=== PATIENT | female | born 1955 | race Hispanic/Latino ===

== ENCOUNTER 2021-12-10 13:23 | Inpatient (IN) | payer MEDICARE ==
[2021-12-11] MEDS: ACETAMINOPHEN 325 MG TAB PO PRN ×2 (05:43→14:46)
[2021-12-11 07:21] LABS: Basophils # (Auto) 0.1 K/mm3 (0.0-0.1); Basophils % (Auto) 0.9 % (0.0-1.8); Eosinophils # (Auto) 0.1 K/mm3 (0.0-0.4); Hematocrit 42.3 % (30.3-42.9); Hemoglobin 14.3 gm/dl (10.1-14.3); Lymphocytes # (Auto) 2.1 K/mm3 (1.2-5.4); Lymphocytes % (Auto) 30.9 % (13.4-35.0); Mean Corpuscular HGB Conc 34 % (30-34); Mean Corpuscular Volume 82 fl (79-97); Monocytes # (Auto) 0.4 K/mm3 (0.0-0.8); Monocytes % (Auto) 6.1 % (0.0-7.3); Platelet Count 179 K/mm3 (140-440); Red Blood Count 5.17 M/mm3 (3.65-5.03); Red Cell Distribution Width 13.6 % (13.2-15.2)
[2021-12-11 07:52] LABS: Alanine Aminotransferase 15 units/L (7-56); Albumin 3.8 g/dL (3.9-5); Blood Urea Nitrogen 24 mg/dL (7-17); Calcium 9.8 mg/dL (8.4-10.2); HDL Cholesterol 45 mg/dL (40-59); Hemolysis Index 5; LDL Cholesterol,Direct 114 mg/dL (50-130)
[2021-12-11 07:53] LABS: BUN/Creatinine Ratio 40
--- NOTE | 2021-12-11 09:22 | Consultation ---
History of Present Illness - Reason for Consult Consult date: 12/11/21 Medical management - History of Present Illness Patient is a 66-year-old female past medical history of major depressive disorder, hypertension, hyperlipidemia, and shl-zehkslw-lsksebatg type 2 diabetes mellitus complicated by diabetic neuropathy who presented due to decline in functional status. The patient has stopped talking and eating. The patient failed outpatient management, and she was deemed a danger to herself. Medicine was consulted for medical management of nonpsychiatric conditions. Past History Past Medical History: diabetes, hypertension, hyperlipidemia, other (Depressive disorder, diabetic neuropathy) Past Surgical History: No surgical history Social history: single, Lives alone, full code Family history: no significant family history Medications and Allergies Allergies Allergy/AdvReac Type Severity Reaction Status Date / Time Penicillins Allergy Unknown Unverified 12/10/21 13:24 Home Medications Medication Instructions Recorded Confirmed Last Taken Type AtorvaSTATin [Lipitor] 20 mg PO QHS 12/11/21 12/11/21 Unknown History Cefdinir 300 mg PO Q12H 12/11/21 12/11/21 Unknown History Duloxetine HCl [Cymbalta] 20 mg PO BID 12/11/21 12/11/21 Unknown History Metformin HCl [metFORMIN] 1,000 mg PO BID 12/11/21 12/11/21 Unknown History Oxycodone HCl [oxyCODONE] 20 mg PO Q6H PRN 12/11/21 12/11/21 Unknown History Pregabalin [Lyrica] 100 mg PO BID 12/11/21 12/11/21 Unknown History lamoTRIgine [LaMICtal] 25 mg PO BID 12/11/21 12/11/21 Unknown History Active Meds: Active Medications Acetaminophen (Acetaminophen 325 Mg Tab) 650 mg PO Q6H PRN PRN Reason: Pain, Mild (1-3) Last Admin: 12/11/21 05:43 Dose: 650 mg Review of Systems ROS unobtainable: due to mental status (Limited exam due to patient's current mental status.) Exam - Constitutional Vitals: Temp Pulse Resp BP Pulse Ox 97.3 F L 65 16 103/61 95 12/10/21 22:00 12/10/21 22:00 12/10/21 22:00 12/10/21 22:00 12/10/21 22:00 General appearance: Present: no acute distress, well-nourished, obese - EENT Eyes: Present: PERRL, EOM intact ENT: hearing intact, clear oral mucosa, dentition normal - Neck Neck: Present: supple, normal ROM - Respiratory Respiratory effort: normal Respiratory: bilateral: CTA - Cardiovascular Rhythm: regular Heart Sounds: Present: S1 & S2 - Extremities Extremities: no ischemia, pulses intact, pulses symmetrical, No edema, normal temperature, normal color Peripheral Pulses: within normal limits - Abdominal General gastrointestinal: Present: soft, non-tender, non-distended, normal bowel sounds Female genitourinary: Present: deferred - Rectal Rectal Exam: deferred - Integumentary Integumentary: Present: clear, warm, dry - Musculoskeletal Musculoskeletal: other (Unable to fully assess) - Psychiatric Psychiatric: depressed - Neurologic Neurologic: CNII-XII intact, moves all extremities - Allied Health Allied health notes reviewed: nursing Results - Labs CBC & Chem 7: 12/11/21 07:06 12/11/21 07:06 Labs: Abnormal lab results 12/10/21 12/11/21 12/11/21 Range/Units 20:02 07:06 07:06 RBC 5.17 H (3.65-5.03) M/mm3 BUN 24 H (7-17) mg/dL Glucose 268 H (65-100) mg/dL POC Glucose 180 H (70-105) mg/dL Hemoglobin A1c (4-6) % Total Protein 5.7 L (6.3-8.2) g/dL Albumin 3.8 L (3.9-5) g/dL Triglycerides 162 H (2-149) mg/dL 12/11/21 Range/Units 07:06 RBC (3.65-5.03) M/mm3 BUN (7-17) mg/dL Glucose (65-100) mg/dL POC Glucose (70-105) mg/dL Hemoglobin A1c 11.9 H (4-6) % Total Protein (6.3-8.2) g/dL Albumin (3.9-5) g/dL Triglycerides (2-149) mg/dL Assessment and Plan Patient is a 66-year-old female past medical history of major depressive disorder, hyperlipidemia, and [id number]-wtsqesgoi type 2 diabetes mellitus complicated by diabetic neuropathy who presented due to decline in functional status. The patient has stopped talking and eating. The patient failed outpatient management, and she was deemed a danger to herself. Medicine was consulted for medical management of nonpsychiatric conditions. #Major depressive disorder Management per primary #Non-insulin dependent type II diabetes mellitus complicated by diabetic neuropathy #[id number] type 2 diabetes mellitus with hyperglycemia - hemoglobin A1c: 11.9 - home regimen: Metformin 1000 mg twice daily and pregabalin 100 mg twice daily - current regimen: Metformin 1000 mg twice daily, pregabalin 100 mg twice daily, glipizide 5 mg daily - blood glucose goal 140-180 while inpatient - continue to monitor #Hyperlipidemia Continue home atorvastatin 20 mg daily #Mild protein caloric malnutrition Albumin 3.8 Starting dietary supplementation #Obesity #Weight loss counseling #Exercise counseling - BMI 30.2 - Counseled patient on the importance of weight loss, incorporating exercise, and dietary changes (lean meats, fresh fruits and vegetables, and water intake). Patient expresses understanding. - Time: +15 min #Advanced care planning -Disease education conducted, care plan discussed, diagnoses discussed, prognosis discussed, and patient acknowledges understanding with care plan -Time: +30 min Thank you for this interesting consult. We will continue to follow.
--- NOTE | 2021-12-11 09:31 | History and Physical Report ---
GP History & Physical - History of Present Illness Date of admission: 12/10/21 Date of Examination: 12/11/21 Reason for Admission: Danger to self, Failure of Outpatient Treatment, Severe anxiety/depression History of Present Illness: HPI: decline in functioning. stopped takings, stopped eating. Voiced SI d/t not liking her "home environment" per referral packet. The patient was seen today. She is lying in bed with her eyes closed. She is s hifting her position slightly and her eyes are blinking. She is avoidant and doesn't acknowledge my presence. I call her name several times, and then shake her. She then opens them and looks at me and closes them back. 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 PAST PSYCHIATRIC HISTORY: Unable to obtain PAST MEDICAL HISTORY: None reported or document Family Psychiatric History: None reported or documented SOCIAL HISTORY Unable to obtain REVIEW OF SYSTEMS Unable to obtain MENTAL STATUS EXAMINATION Unable to obtain Diagnoses: Major Depressive Disorder Treatment Plan Patient admitted for inpatient psychiatric evaluation, medication adjustment and close monitoring The patient's behavior, mood, sleep and appetite will be closely monitored. Patient enrolled in individual and group therapeutic sessions and encouraged to attend. Patient provided with a safe and structured environment. Patient's physical health needs will be addressed by the Hospitalist. Hospitalist Consulted Labs including CBC, CMP, Lipid profile and Hemoglobin A1C levels ordered for baseline reference Social Assessment will be completed and the Vice President Marketing [employer] Development will work with patient and family to ensure a suitable and safe disposition Medication adjustment will be made as clinically indicated Continue home meds Start Abilify 5mg po daily as adjunct Usual Wellness [facility]: - Start Trazodone 50 mg po QHS & 50 mg po QHS PRN between 10 PM & 2 AM for insomnia - Start Melatonin 5 mg po QHS to promote circadian rhythm The patient agreed on the treatment plan, understood the risk, benefit, alternative treatment, potential consequence of no treatment, and gave informed consent. Estimated days: 7 Post hospital care: primary care provider, psychiatric provider Case staffed with Dr. King Legal Status: Voluntary Reaction to Hospitalization: Accepting Medications and Allergies Allergies Allergy/AdvReac Type Severity Reaction Status Date / Time Penicillins Allergy Unknown Unverified 12/10/21 13:24 Home Medications Medication Instructions Recorded Confirmed Last Taken Type AtorvaSTATin [Lipitor] 20 mg PO QHS 12/11/21 12/11/21 Unknown History Cefdinir 300 mg PO Q12H 12/11/21 12/11/21 Unknown History Duloxetine HCl [Cymbalta] 20 mg PO BID 12/11/21 12/11/21 Unknown History Metformin HCl [metFORMIN] 1,000 mg PO BID 12/11/21 12/11/21 Unknown History Oxycodone HCl [oxyCODONE] 20 mg PO Q6H PRN 12/11/21 12/11/21 Unknown History Pregabalin [Lyrica] 100 mg PO BID 12/11/21 12/11/21 Unknown History lamoTRIgine [LaMICtal] 25 mg PO BID 12/11/21 12/11/21 Unknown History Active Meds: Active Medications Acetaminophen (Acetaminophen 325 Mg Tab) 650 mg PO Q6H PRN PRN Reason: Pain, Mild (1-3) Last Admin: 12/11/21 05:43 Dose: 650 mg Results - Results Labs/Vitals: Laboratory Last Values WBC 6.9 K/mm3 (4.5-11.0) 12/11/21 07:06 RBC 5.17 M/mm3 (3.65-5.03) H 12/11/21 07:06 Hgb 14.3 gm/dl (10.1-14.3) 12/11/21 07:06 Hct 42.3 % (30.3-42.9) 12/11/21 07:06 MCV 82 fl (79-97) 12/11/21 07:06 MCH 28 pg (28-32) 12/11/21 07:06 MCHC 34 % (30-34) 12/11/21 07:06 RDW 13.6 % (13.2-15.2) 12/11/21 07:06 Plt Count 179 K/mm3 (140-440) 12/11/21 07:06 Lymph % (Auto) 30.9 % (13.4-35.0) 12/11/21 07:06 [place] % (Auto) 6.1 % (0.0-7.3) 12/11/21 07:06 Eos % (Auto) 2.0 % (0.0-4.3) 12/11/21 07:06 Baso % (Auto) 0.9 % (0.0-1.8) 12/11/21 07:06 Lymph # (Auto) 2.1 K/mm3 (1.2-5.4) 12/11/21 07:06 [place] # (Auto) 0.4 K/mm3 (0.0-0.8) 12/11/21 07:06 Eos # (Auto) 0.1 K/mm3 (0.0-0.4) 12/11/21 07:06 Baso # (Auto) 0.1 K/mm3 (0.0-0.1) 12/11/21 07:06 Seg Neutrophils % 60.1 % (40.0-70.0) 12/11/21 07:06 Seg Neutrophils # 4.2 K/mm3 (1.8-7.7) 12/11/21 07:06 Sodium 137 mmol/L (137-145) 12/11/21 07:06 Potassium 4.3 mmol/L (3.6-5.0) 12/11/21 07:06 Chloride 98.9 mmol/L (98-107) 12/11/21 07:06 Carbon Dioxide 26 mmol/L (22-30) 12/11/21 07:06 Anion Gap 16 mmol/L 12/11/21 07:06 BUN 24 mg/dL (7-17) H 12/11/21 07:06 Creatinine 0.6 mg/dL (0.6-1.2) 12/11/21 07:06 Estimated GFR > 60 ml/min 12/11/21 07:06 BUN/Creatinine Ratio 40 % 12/11/21 07:06 Glucose 268 mg/dL (65-100) H 12/11/21 07:06 POC Glucose 180 mg/dL (70-105) H 12/10/21 20:02 Hemoglobin A1c 11.9 % (4-6) H 12/11/21 07:06 Calcium 9.8 mg/dL (8.4-10.2) 12/11/21 07:06 Total Bilirubin 0.40 mg/dL (0.1-1.2) 12/11/21 07:06 AST 11 units/L (5-40) 12/11/21 07:06 ALT 15 units/L (7-56) 12/11/21 07:06 Alkaline Phosphatase 74 units/L (35-129) 12/11/21 07:06 Total Protein 5.7 g/dL (6.3-8.2) L 12/11/21 07:06 Albumin 3.8 g/dL (3.9-5) L 12/11/21 07:06 Albumin/Globulin Ratio 2.0 % 12/11/21 07:06 Triglycerides 162 mg/dL (2-149) H 12/11/21 07:06 Cholesterol 189 mg/dL (50-199) 12/11/21 07:06 LDL Cholesterol Direct 114 mg/dL (50-130) 12/11/21 07:06 HDL Cholesterol 45 mg/dL (40-59) 12/11/21 07:06 Cholesterol/HDL Ratio 4.20 % 12/11/21 07:06 TSH 0.343 mlU/mL (0.270-4.200) 12/11/21 07:06 Last Vital Signs Temp 97.3 F L 12/10/21 22:00 Pulse 65 12/10/21 22:00 Resp 16 12/10/21 22:00 BP 103/61 12/10/21 22:00 Pulse Ox 95 12/10/21 22:00 Physical Examination - Constitutional Vitals: Vital Signs Temp Pulse Resp BP Pulse Ox 97.3 F L 65 16 103/61 95 12/10/21 22:00 12/10/21 22:00 12/10/21 22:00 12/10/21 22:00 12/10/21 22:00 Temperature -Last 24 Hours Temperature 97.3 F Temperature 97.3 F Temperature 98.1 F Mental Status Exam - Vital signs Last Vital Signs Temp 97.3 F L 12/10/21 22:00 Pulse 65 12/10/21 22:00 Resp 16 12/10/21 22:00 BP 103/61 12/10/21 22:00 Pulse Ox 95 12/10/21 22:00 Physician Certification - Certification Statement Physician Certification Statement: This is an acknowledgement statement that DYLAN LOPES is a 66 year old F who requires inpatient psychiatric admission for treatment which could reasonably be expected to improve the patient's condition for Estimated period of time patient will need to remain in the hospital: [ ] Plan for post-hospital care: [ ]
[2021-12-11] MEDS ORDERED: NON-FORMULARY EACH (Oxycodone Hcl [Oxycodone] 20 MG Tablet) PO PRN (09:35)
[2021-12-11] MEDS ORDERED: NON-FORMULARY EACH (Cefdinir [Cefdinir] 300 MG Capsule) PO SCH (09:45)
[2021-12-11] MEDS ORDERED: OXYCODONE 15 MG TAB PO PRN (09:57)
[2021-12-11] MEDS ORDERED: NON-FORMULARY EACH (Pregabalin [Lyrica] 100 MG Capsule) PO SCH (10:00)
[2021-12-11] MEDS: metFORMIN 500 MG TAB PO SCH ×2 (10:23→16:36)
[2021-12-11] MEDS: lamoTRIgine 25 MG TAB PO SCH ×2 (10:23→21:52)
[2021-12-11] MEDS: PREGABALIN 50 MG CAP PO SCH ×2 (10:23→21:52)
[2021-12-11] MEDS: DULoxetine 20 MG CAP PO SCH ×2 (10:23→21:52)
[2021-12-11] MEDS: ARIPiprazole 5 MG TAB PO SCH (10:23)
[2021-12-11] MEDS ORDERED: HALOPERIDOL LACTATE 5 MG/1 ML INJ IM PRN (10:31)
[2021-12-11] MEDS: glipiZIDE 5 MG TAB PO SCH (16:36)
[2021-12-11] MEDS: oxyCODONE 5 MG TAB PO PRN (22:00)
[2021-12-12] MEDS: glipiZIDE 5 MG TAB PO SCH (08:25)
[2021-12-12] MEDS: metFORMIN 500 MG TAB PO SCH ×2 (08:25→16:28)
--- NOTE | 2021-12-12 09:18 | Progress Note ---
Subjective Date of service: 12/12/21 Principal diagnosis: MDD Subjective Comment: The patient was seen today. She is calm and cooperative and states she feels much better. She is asking how long she will be here. She denies SI/HI or hallucinations of any kind. The patient states she did not sleep well. Staff says the patient is doing better since Haldol injection ordered yesterday. Will start Remeron to improve sleep and stimulate appetite. REVIEW OF SYSTEMS Constitutional: Negative for weight loss ENT: Negative for stridor Respiratory: Negative for cough or hemoptysis All other systems reviewed and are negative MENTAL STATUS EXAMINATION General Appearance and Behavior: Age appropriate, good hygiene, wearing appropriate clothes, fair eye contact, anxious, cooperative Cooperation: Participating/engaged Psychomotor Behavior: Psychomotor normal Mood: better, anxious Affect and affective range: congruent with stated mood, tearful Thought Process: goal directed Thought Content: None Speech: normal tone and pace Suicidal Ideation: Denies Homicidal Ideation: Denies Hallucinations: Denies Delusions: None elicited Impulse Control: Limited Insight and Judgment: Limited insight and judgment Memory: Limited Attention: attentive Orientation: Alert, oriented Diagnoses: Major Depressive Disorder Treatment Plan Patient admitted for inpatient psychiatric evaluation, medication adjustment and close monitoring The patient's behavior, mood, sleep and appetite will be closely monitored. Patient enrolled in individual and group therapeutic sessions and encouraged to attend. Patient provided with a safe and structured environment. Patient's physical health needs will be addressed by the Hospitalist. Hospitalist Consulted Labs including CBC, CMP, Lipid profile and Hemoglobin A1C levels ordered for baseline reference Social Assessment will be completed and the Vice President [employer] will work with patient and family to ensure a suitable and safe disposition Medication adjustment will be made as clinically indicated Abilify 5mg po daily as adjunct Start Remeron 7.5mg po qhs to promote rest and stimulate appetite Usual Wellness [facility]: - Start Trazodone 50 mg po QHS & 50 mg po QHS PRN between 10 PM & 2 AM for insomnia - Start Melatonin 5 mg po QHS to promote circadian rhythm The patient agreed on the treatment plan, understood the risk, benefit, alternative treatment, potential consequence of no treatment, and gave informed consent. Estimated days: 7 Post hospital care: primary care provider, psychiatric provider Case staffed with Dr. King Medications and Allergies Allergies Allergy/AdvReac Type Severity Reaction Status Date / Time Penicillins Allergy Unknown Unverified 12/10/21 13:24 Home Medications Medication Instructions Recorded Confirmed Last Taken Type AtorvaSTATin [Lipitor] 20 mg PO QHS 12/11/21 12/11/21 Unknown History Cefdinir 300 mg PO Q12H 12/11/21 12/11/21 Unknown History Duloxetine HCl [Cymbalta] 20 mg PO BID 12/11/21 12/11/21 Unknown History Metformin HCl [metFORMIN] 1,000 mg PO BID 12/11/21 12/11/21 Unknown History Oxycodone HCl [oxyCODONE] 20 mg PO Q6H PRN 12/11/21 12/11/21 Unknown History Pregabalin [Lyrica] 100 mg PO BID 12/11/21 12/11/21 Unknown History lamoTRIgine [LaMICtal] 25 mg PO BID 12/11/21 12/11/21 Unknown History Active Meds: Active Medications Acetaminophen (Acetaminophen 325 Mg Tab) 650 mg PO Q6H PRN PRN Reason: Pain, Mild (1-3) Last Admin: 12/11/21 05:43 Dose: 650 mg Aripiprazole (Aripiprazole 5 Mg Tab) 5 mg PO QDAY [facility] Last Admin: 12/11/21 10:23 Dose: Not Given Atorvastatin Calcium (Atorvastatin 20 Mg Tab) 20 mg PO QHS [facility] Last Admin: 12/11/21 21:52 Dose: 20 mg Cephalexin (Cephalexin 500 Mg Cap) 500 mg PO Q8HR [facility]; Protocol Duloxetine HCl (Duloxetine 20 Mg Cap) 20 mg PO BID [facility] Last Admin: 12/11/21 21:52 Dose: 20 mg Glipizide (Glipizide 5 Mg Tab) 5 mg PO QDDIAB [facility] Last Admin: 12/12/21 08:25 Dose: 5 mg Haloperidol Lactate (Haloperidol Lactate 5 Mg/1 Ml Inj) 5 mg IM Q6H PRN PRN Reason: Agitation Last Admin: 12/11/21 11:08 Dose: 5 mg Lamotrigine (Lamotrigine 25 Mg Tab) 25 mg PO BID [facility] Last Admin: 12/11/21 21:52 Dose: 25 mg Metformin HCl (Metformin 500 Mg Tab) 1,000 mg PO BIDDIAB [facility] Last Admin: 12/12/21 08:25 Dose: 1,000 mg Oxycodone HCl (Oxycodone 15 Mg Tab) 15 mg PO Q6H PRN PRN Reason: SEVERE PAIN Oxycodone HCl (Oxycodone 5 Mg Tab) 5 mg PO Q6H PRN PRN Reason: Pain, SEVERE 7-10 Last Admin: 12/11/21 22:00 Dose: 5 mg Pregabalin (Pregabalin 50 Mg Cap) 100 mg PO BID [facility] Last Admin: 12/11/21 21:52 Dose: 100 mg Results - Results Labs/Vitals: Laboratory Last Values WBC 6.9 K/mm3 (4.5-11.0) 12/11/21 07:06 RBC 5.17 M/mm3 (3.65-5.03) H 12/11/21 07:06 Hgb 14.3 gm/dl (10.1-14.3) 12/11/21 07:06 Hct 42.3 % (30.3-42.9) 12/11/21 07:06 MCV 82 fl (79-97) 12/11/21 07:06 MCH 28 pg (28-32) 12/11/21 07:06 MCHC 34 % (30-34) 12/11/21 07:06 RDW 13.6 % (13.2-15.2) 12/11/21 07:06 Plt Count 179 K/mm3 (140-440) 12/11/21 07:06 Lymph % (Auto) 30.9 % (13.4-35.0) 12/11/21 07:06 [place] % (Auto) 6.1 % (0.0-7.3) 12/11/21 07:06 Eos % (Auto) 2.0 % (0.0-4.3) 12/11/21 07:06 Baso % (Auto) 0.9 % (0.0-1.8) 12/11/21 07:06 Lymph # (Auto) 2.1 K/mm3 (1.2-5.4) 12/11/21 07:06 [place] # (Auto) 0.4 K/mm3 (0.0-0.8) 12/11/21 07:06 Eos # (Auto) 0.1 K/mm3 (0.0-0.4) 12/11/21 07:06 Baso # (Auto) 0.1 K/mm3 (0.0-0.1) 12/11/21 07:06 Seg Neutrophils % 60.1 % (40.0-70.0) 12/11/21 07:06 Seg Neutrophils # 4.2 K/mm3 (1.8-7.7) 12/11/21 07:06 Sodium 137 mmol/L (137-145) 12/11/21 07:06 Potassium 4.3 mmol/L (3.6-5.0) 12/11/21 07:06 Chloride 98.9 mmol/L (98-107) 12/11/21 07:06 Carbon Dioxide 26 mmol/L (22-30) 12/11/21 07:06 Anion Gap 16 mmol/L 12/11/21 07:06 BUN 24 mg/dL (7-17) H 12/11/21 07:06 Creatinine 0.6 mg/dL (0.6-1.2) 12/11/21 07:06 Estimated GFR > 60 ml/min 12/11/21 07:06 BUN/Creatinine Ratio 40 % 12/11/21 07:06 Glucose 268 mg/dL (65-100) H 12/11/21 07:06 POC Glucose 211 mg/dL (70-105) H 12/12/21 06:17 Hemoglobin A1c 11.9 % (4-6) H 12/11/21 07:06 Calcium 9.8 mg/dL (8.4-10.2) 12/11/21 07:06 Total Bilirubin 0.40 mg/dL (0.1-1.2) 12/11/21 07:06 AST 11 units/L (5-40) 12/11/21 07:06 ALT 15 units/L (7-56) 12/11/21 07:06 Alkaline Phosphatase 74 units/L (35-129) 12/11/21 07:06 Total Protein 5.7 g/dL (6.3-8.2) L 12/11/21 07:06 Albumin 3.8 g/dL (3.9-5) L 12/11/21 07:06 Albumin/Globulin Ratio 2.0 % 12/11/21 07:06 Triglycerides 162 mg/dL (2-149) H 12/11/21 07:06 Cholesterol 189 mg/dL (50-199) 12/11/21 07:06 LDL Cholesterol Direct 114 mg/dL (50-130) 12/11/21 07:06 HDL Cholesterol 45 mg/dL (40-59) 12/11/21 07:06 Cholesterol/HDL Ratio 4.20 % 12/11/21 07:06 TSH 0.343 mlU/mL (0.270-4.200) 12/11/21 07:06 Last Vital Signs Temp 98.5 F 12/12/21 07:53 Pulse 70 12/12/21 07:53 Resp 16 12/12/21 07:53 BP 94/60 12/12/21 07:53 Pulse Ox 98 12/12/21 07:53
[2021-12-12] MEDS: oxyCODONE 5 MG TAB PO PRN ×3 (09:24→21:34)
[2021-12-12] MEDS: lamoTRIgine 25 MG TAB PO SCH ×2 (09:24→21:33)
[2021-12-12] MEDS: PREGABALIN 50 MG CAP PO SCH ×2 (09:25→21:33)
[2021-12-12] MEDS: DULoxetine 20 MG CAP PO SCH ×2 (09:25→21:33)
[2021-12-12] MEDS: ARIPiprazole 5 MG TAB PO SCH (09:25)
--- NOTE | 2021-12-12 10:49 | Progress Note ---
Assessment and Plan Assessment and plan: Patient is a 66-year-old female past medical history of major depressive disorder, hyperlipidemia, and zub-pjnyuag-rqgjsgths type 2 diabetes mellitus complicated by diabetic neuropathy who presented due to decline in functional status. The patient has stopped talking and eating. The patient failed outpatient management, and she was deemed a danger to herself. Medicine was consulted for medical management of nonpsychiatric conditions. #Major depressive disorder Management per primary #Non-insulin dependent type II diabetes mellitus complicated by diabetic neuropathy #Zll-jnisezp-dyadurfue type 2 diabetes mellitus with hyperglycemia - hemoglobin A1c: 11.9 - home regimen: Metformin 1000 mg twice daily and pregabalin 100 mg twice daily - current regimen: Metformin 1000 mg twice daily, pregabalin 100 mg twice daily, glipizide 5 mg daily - blood glucose goal 140-180 while inpatient - continue to monitor #Hyperlipidemia Continue home atorvastatin 20 mg daily #Mild protein caloric malnutrition Albumin 3.8 Continue dietary supplementation #Obesity #Weight loss counseling #Exercise counseling - BMI 30.2 - Counseled patient on the importance of weight loss, incorporating exercise, and dietary changes (lean meats, fresh fruits and vegetables, and water intake). Patient expresses understanding. - Time: +15 min #Advanced care planning -Disease education conducted, care plan discussed, diagnoses discussed, prognosis discussed, and patient acknowledges understanding with care plan -Time: +30 min Disposition Plan: Continue medical management Total Time Spent with Patient (Minutes): 30 minutes History Interval history: No acute events overnight. Hospitalist Physical - Constitutional Vitals: Temp Pulse Resp BP Pulse Ox 98.5 F 70 16 94/60 98 12/12/21 07:53 12/12/21 07:53 12/12/21 07:53 12/12/21 07:53 12/12/21 07:53 General appearance: Present: no acute distress, well-nourished, obese - EENT Eyes: Present: PERRL, EOM intact ENT: hearing intact, clear oral mucosa - Neck Neck: Present: supple, normal ROM - Respiratory Respiratory effort: normal Respiratory: bilateral: CTA - Cardiovascular Rhythm: regular Heart Sounds: Present: S1 & S2 - Extremities Extremities: no ischemia, pulses intact, pulses symmetrical, normal temperature, normal color Peripheral Pulses: within normal limits - Abdominal General gastrointestinal: soft, non-tender, non-distended, normal bowel sounds - Integumentary Integumentary: Present: clear, warm, dry - Psychiatric Psychiatric: appropriate mood/affect, depressed - Neurologic Neurologic: CNII-XII intact, moves all extremities - Allied Health Allied health notes reviewed: nursing Results - Labs CBC & Chem 7: 12/11/21 07:06 12/11/21 07:06 Labs: Laboratory Last Values WBC 6.9 K/mm3 (4.5-11.0) 12/11/21 07:06 RBC 5.17 M/mm3 (3.65-5.03) H 12/11/21 07:06 Hgb 14.3 gm/dl (10.1-14.3) 12/11/21 07:06 Hct 42.3 % (30.3-42.9) 12/11/21 07:06 MCV 82 fl (79-97) 12/11/21 07:06 MCH 28 pg (28-32) 12/11/21 07:06 MCHC 34 % (30-34) 12/11/21 07:06 RDW 13.6 % (13.2-15.2) 12/11/21 07:06 Plt Count 179 K/mm3 (140-440) 12/11/21 07:06 Lymph % (Auto) 30.9 % (13.4-35.0) 12/11/21 07:06 [place] % (Auto) 6.1 % (0.0-7.3) 12/11/21 07:06 Eos % (Auto) 2.0 % (0.0-4.3) 12/11/21 07:06 Baso % (Auto) 0.9 % (0.0-1.8) 12/11/21 07:06 Lymph # (Auto) 2.1 K/mm3 (1.2-5.4) 12/11/21 07:06 [place] # (Auto) 0.4 K/mm3 (0.0-0.8) 12/11/21 07:06 Eos # (Auto) 0.1 K/mm3 (0.0-0.4) 12/11/21 07:06 Baso # (Auto) 0.1 K/mm3 (0.0-0.1) 12/11/21 07:06 Seg Neutrophils % 60.1 % (40.0-70.0) 12/11/21 07:06 Seg Neutrophils # 4.2 K/mm3 (1.8-7.7) 12/11/21 07:06 Sodium 137 mmol/L (137-145) 12/11/21 07:06 Potassium 4.3 mmol/L (3.6-5.0) 12/11/21 07:06 Chloride 98.9 mmol/L (98-107) 12/11/21 07:06 Carbon Dioxide 26 mmol/L (22-30) 12/11/21 07:06 Anion Gap 16 mmol/L 12/11/21 07:06 BUN 24 mg/dL (7-17) H 12/11/21 07:06 Creatinine 0.6 mg/dL (0.6-1.2) 12/11/21 07:06 Estimated GFR > 60 ml/min 12/11/21 07:06 BUN/Creatinine Ratio 40 % 12/11/21 07:06 Glucose 268 mg/dL (65-100) H 12/11/21 07:06 POC Glucose 211 mg/dL (70-105) H 12/12/21 06:17 Hemoglobin A1c 11.9 % (4-6) H 12/11/21 07:06 Calcium 9.8 mg/dL (8.4-10.2) 12/11/21 07:06 Total Bilirubin 0.40 mg/dL (0.1-1.2) 12/11/21 07:06 AST 11 units/L (5-40) 12/11/21 07:06 ALT 15 units/L (7-56) 12/11/21 07:06 Alkaline Phosphatase 74 units/L (35-129) 12/11/21 07:06 Total Protein 5.7 g/dL (6.3-8.2) L 12/11/21 07:06 Albumin 3.8 g/dL (3.9-5) L 12/11/21 07:06 Albumin/Globulin Ratio 2.0 % 12/11/21 07:06 Triglycerides 162 mg/dL (2-149) H 12/11/21 07:06 Cholesterol 189 mg/dL (50-199) 12/11/21 07:06 LDL Cholesterol Direct 114 mg/dL (50-130) 12/11/21 07:06 HDL Cholesterol 45 mg/dL (40-59) 12/11/21 07:06 Cholesterol/HDL Ratio 4.20 % 12/11/21 07:06 TSH 0.343 mlU/mL (0.270-4.200) 12/11/21 07:06 Hansen/IV: Voiding Method Toilet Active Medications - Current Medications Current Medications: Generic Name Dose Route Start Last Admin Trade Name Freq PRN Reason Stop Dose Admin Acetaminophen 650 mg 12/11/21 05:33 12/11/21 05:43 Acetaminophen 325 Mg Tab PO 650 mg Q6H PRN Administration Pain, Mild (1-3) Aripiprazole 5 mg 12/11/21 10:00 12/12/21 09:25 Aripiprazole 5 Mg Tab PO 5 mg QDAY [facility]AT Administration Atorvastatin Calcium 20 mg 12/11/21 22:00 12/11/21 21:52 Atorvastatin 20 Mg Tab PO 20 mg QHS [facility]AT Administration Cephalexin 500 mg 12/12/21 14:00 Cephalexin 500 Mg Cap PO 12/18/21 23:59 Q8HR [facility]AT Protocol Duloxetine HCl 20 mg 12/11/21 10:00 12/12/21 09:25 Duloxetine 20 Mg Cap PO 20 mg BID [facility]AT Administration Glipizide 5 mg 12/11/21 16:00 12/12/21 08:25 Glipizide 5 Mg Tab PO 5 mg QDDIAB [facility]AT Administration Haloperidol Lactate 5 mg 12/11/21 10:31 12/11/21 11:08 Haloperidol Lactate 5 Mg/1 Ml Inj IM 5 mg Q6H PRN Administration Agitation Lamotrigine 25 mg 12/11/21 10:00 12/12/21 09:24 Lamotrigine 25 Mg Tab PO 25 mg BID RAFAT Administration Metformin HCl 1,000 mg 12/11/21 11:00 12/12/21 08:25 Metformin 500 Mg Tab PO 1,000 mg BIDDIAB [facility]AT Administration Mirtazapine 7.5 mg 12/12/21 22:00 Mirtazapine 15 Mg Tab PO QHS [facility]AT Oxycodone HCl 15 mg 12/11/21 09:57 Oxycodone 15 Mg Tab PO Q6H PRN SEVERE PAIN Oxycodone HCl 5 mg 12/11/21 09:58 12/12/21 09:24 Oxycodone 5 Mg Tab PO 5 mg Q6H PRN Administration Pain, SEVERE 7-10 Pregabalin 100 mg 12/11/21 10:00 12/12/21 09:25 Pregabalin 50 Mg Cap PO 100 mg BID RAFAT Administration
[2021-12-12] MEDS ORDERED: cephALEXin 500 MG CAP PO SCH (14:00)
[2021-12-12] MEDS: MIRTAZAPINE 15 MG TAB PO SCH (21:33)
[2021-12-12] MEDS ORDERED: AMOXICILLIN/K CLAV 500/125MG TAB PO SCH (22:00)
[2021-12-13] MEDS: glipiZIDE 5 MG TAB PO SCH (08:15)
[2021-12-13] MEDS: metFORMIN 500 MG TAB PO SCH ×2 (08:15→17:03)
[2021-12-13] MEDS: lamoTRIgine 25 MG TAB PO SCH ×2 (09:16→21:07)
[2021-12-13] MEDS: ARIPiprazole 5 MG TAB PO SCH (09:16)
[2021-12-13] MEDS: PREGABALIN 50 MG CAP PO SCH ×2 (09:16→21:07)
[2021-12-13] MEDS: DULoxetine 20 MG CAP PO SCH (09:17)
[2021-12-13] MEDS: oxyCODONE 5 MG TAB PO PRN ×2 (09:17→22:57)
--- NOTE | 2021-12-13 09:31 | Progress Note ---
Subjective Date of service: 12/13/21 Principal diagnosis: MDD Subjective Comment: The patient was seen today. She is lying in bed awake. She says she says she doesn't feel good. She says her stomach hurts. The patient denies SI/HI, but states "if I did no one would care. She says "my runs off with other women and I haven't spoken to my children in years." 12/12 The patient was seen today. She is calm and cooperative and states she feels much better. She is asking how long she will be here. She denies SI/HI or hallucinations of any kind. The patient states she did not sleep well. Staff says the patient is doing better since Haldol injection ordered yesterday. Will start Remeron to improve sleep and stimulate appetite. REVIEW OF SYSTEMS Constitutional: Negative for weight loss ENT: Negative for stridor Respiratory: Negative for cough or hemoptysis All other systems reviewed and are negative MENTAL STATUS EXAMINATION General Appearance and Behavior: Age appropriate, good hygiene, wearing appropri ate clothes, fair eye contact, anxious, cooperative Cooperation: Participating/engaged Psychomotor Behavior: Psychomotor normal Mood: better, anxious Affect and affective range: congruent with stated mood, tearful Thought Process: goal directed Thought Content: None Speech: normal tone and pace Suicidal Ideation: passive Homicidal Ideation: Denies Hallucinations: Denies Delusions: None elicited Impulse Control: Limited Insight and Judgment: Limited insight and judgment Memory: Limited Attention: attentive Orientation: Alert, oriented Diagnoses: Major Depressive Disorder Treatment Plan Patient admitted for inpatient psychiatric evaluation, medication adjustment and close monitoring The patient's behavior, mood, sleep and appetite will be closely monitored. Patient enrolled in individual and group therapeutic sessions and encouraged to attend. Patient provided with a safe and structured environment. Patient's physical health needs will be addressed by the Hospitalist. Hospitalist Consulted Labs including CBC, CMP, Lipid profile and Hemoglobin A1C levels ordered for baseline reference Social Assessment will be completed and the [employer] Operations Division will work with patient and family to ensure a suitable and safe disposition Medication adjustment will be made as clinically indicated Abilify 5mg po daily as adjunct Continue Remeron 7.5mg po qhs to promote rest and stimulate appetite Increase Cymbalta 60mg po daily Usual Wellness Restorationism/Preservation: - Start Trazodone 50 mg po QHS & 50 mg po QHS PRN between 10 PM & 2 AM for insomnia - Start Melatonin 5 mg po QHS to promote circadian rhythm The patient agreed on the treatment plan, understood the risk, benefit, alternative treatment, potential consequence of no treatment, and gave informed consent. Estimated days: 7 Post hospital care: primary care provider, psychiatric provider Case staffed with Dr. King Medications and Allergies Allergies Allergy/AdvReac Type Severity Reaction Status Date / Time Penicillins Allergy Severe Rash Verified 12/12/21 13:33 Home Medications Medication Instructions Recorded Confirmed Last Taken Type AtorvaSTATin [Lipitor] 20 mg PO QHS 12/11/21 12/11/21 Unknown History Cefdinir 300 mg PO Q12H 12/11/21 12/11/21 Unknown History Duloxetine HCl [Cymbalta] 20 mg PO BID 12/11/21 12/11/21 Unknown History Metformin HCl [metFORMIN] 1,000 mg PO BID 12/11/21 12/11/21 Unknown History Oxycodone HCl [oxyCODONE] 20 mg PO Q6H PRN 12/11/21 12/11/21 Unknown History Pregabalin [Lyrica] 100 mg PO BID 12/11/21 12/11/21 Unknown History lamoTRIgine [LaMICtal] 25 mg PO BID 12/11/21 12/11/21 Unknown History Active Meds: Active Medications Acetaminophen (Acetaminophen 325 Mg Tab) 650 mg PO Q6H PRN PRN Reason: Pain, Mild (1-3) Last Admin: 12/11/21 05:43 Dose: 650 mg Amoxicillin/Clavulanate Potassium (Amoxicillin/K Clav 500/125mg Tab) 1 each PO Q12HR [facility]; Protocol Stop: 12/17/21 21:59 Aripiprazole (Aripiprazole 5 Mg Tab) 5 mg PO QDAY [facility] Last Admin: 12/13/21 09:16 Dose: 5 mg Atorvastatin Calcium (Atorvastatin 20 Mg Tab) 20 mg PO QHS [facility] Last Admin: 12/12/21 21:33 Dose: 20 mg Duloxetine HCl (Duloxetine 20 Mg Cap) 20 mg PO BID [facility] Last Admin: 12/13/21 09:17 Dose: 20 mg Glipizide (Glipizide 5 Mg Tab) 10 mg PO QDDIAB [facility] Haloperidol Lactate (Haloperidol Lactate 5 Mg/1 Ml Inj) 5 mg IM Q6H PRN PRN Reason: Agitation Last Admin: 12/11/21 11:08 Dose: 5 mg Lamotrigine (Lamotrigine 25 Mg Tab) 25 mg PO BID [facility] Last Admin: 12/13/21 09:16 Dose: 25 mg Metformin HCl (Metformin 500 Mg Tab) 1,000 mg PO BIDDIAB [facility] Last Admin: 12/13/21 08:15 Dose: 1,000 mg Mirtazapine (Mirtazapine 15 Mg Tab) 7.5 mg PO QHS [facility] Last Admin: 12/12/21 21:33 Dose: 7.5 mg Oxycodone HCl (Oxycodone 15 Mg Tab) 15 mg PO Q6H PRN PRN Reason: SEVERE PAIN Oxycodone HCl (Oxycodone 5 Mg Tab) 5 mg PO Q6H PRN PRN Reason: Pain, SEVERE 7-10 Last Admin: 12/13/21 09:17 Dose: 5 mg Pregabalin (Pregabalin 50 Mg Cap) 100 mg PO BID [facility] Last Admin: 12/13/21 09:16 Dose: 100 mg Results - Results Labs/Vitals: Laboratory Last Values WBC 6.9 K/mm3 (4.5-11.0) 12/11/21 07:06 RBC 5.17 M/mm3 (3.65-5.03) H 12/11/21 07:06 Hgb 14.3 gm/dl (10.1-14.3) 12/11/21 07:06 Hct 42.3 % (30.3-42.9) 12/11/21 07:06 MCV 82 fl (79-97) 12/11/21 07:06 MCH 28 pg (28-32) 12/11/21 07:06 MCHC 34 % (30-34) 12/11/21 07:06 RDW 13.6 % (13.2-15.2) 12/11/21 07:06 Plt Count 179 K/mm3 (140-440) 12/11/21 07:06 Lymph % (Auto) 30.9 % (13.4-35.0) 12/11/21 07:06 [place] % (Auto) 6.1 % (0.0-7.3) 12/11/21 07:06 Eos % (Auto) 2.0 % (0.0-4.3) 12/11/21 07:06 Baso % (Auto) 0.9 % (0.0-1.8) 12/11/21 07:06 Lymph # (Auto) 2.1 K/mm3 (1.2-5.4) 12/11/21 07:06 [place] # (Auto) 0.4 K/mm3 (0.0-0.8) 12/11/21 07:06 Eos # (Auto) 0.1 K/mm3 (0.0-0.4) 12/11/21 07:06 Baso # (Auto) 0.1 K/mm3 (0.0-0.1) 12/11/21 07:06 Seg Neutrophils % 60.1 % (40.0-70.0) 12/11/21 07:06 Seg Neutrophils # 4.2 K/mm3 (1.8-7.7) 12/11/21 07:06 Sodium 137 mmol/L (137-145) 12/11/21 07:06 Potassium 4.3 mmol/L (3.6-5.0) 12/11/21 07:06 Chloride 98.9 mmol/L (98-107) 12/11/21 07:06 Carbon Dioxide 26 mmol/L (22-30) 12/11/21 07:06 Anion Gap 16 mmol/L 12/11/21 07:06 BUN 24 mg/dL (7-17) H 12/11/21 07:06 Creatinine 0.6 mg/dL (0.6-1.2) 12/11/21 07:06 Estimated GFR > 60 ml/min 12/11/21 07:06 BUN/Creatinine Ratio 40 % 12/11/21 07:06 Glucose 268 mg/dL (65-100) H 12/11/21 07:06 POC Glucose 273 mg/dL (70-105) H 12/13/21 06:22 Hemoglobin A1c 11.9 % (4-6) H 12/11/21 07:06 Calcium 9.8 mg/dL (8.4-10.2) 12/11/21 07:06 Total Bilirubin 0.40 mg/dL (0.1-1.2) 12/11/21 07:06 AST 11 units/L (5-40) 12/11/21 07:06 ALT 15 units/L (7-56) 12/11/21 07:06 Alkaline Phosphatase 74 units/L (35-129) 12/11/21 07:06 Total Protein 5.7 g/dL (6.3-8.2) L 12/11/21 07:06 Albumin 3.8 g/dL (3.9-5) L 12/11/21 07:06 Albumin/Globulin Ratio 2.0 % 12/11/21 07:06 Triglycerides 162 mg/dL (2-149) H 12/11/21 07:06 Cholesterol 189 mg/dL (50-199) 12/11/21 07:06 LDL Cholesterol Direct 114 mg/dL (50-130) 12/11/21 07:06 HDL Cholesterol 45 mg/dL (40-59) 12/11/21 07:06 Cholesterol/HDL Ratio 4.20 % 12/11/21 07:06 TSH 0.343 mlU/mL (0.270-4.200) 12/11/21 07:06 Last Vital Signs Temp 98.3 F 12/13/21 08:51 Pulse 67 12/13/21 08:51 Resp 18 12/13/21 09:17 BP 121/54 12/13/21 08:51 Pulse Ox 96 12/13/21 08:51
[2021-12-13] MEDS ORDERED: DULoxetine 30 MG CAP PO SCH (10:00)
--- NOTE | 2021-12-13 12:39 | Progress Note ---
Assessment and Plan Assessment and plan: Patient is a 66-year-old female past medical history of major depressive disorder, hyperlipidemia, and vak-uunzabz-bfyvymcll type 2 diabetes mellitus complicated by diabetic neuropathy who presented due to decline in functional status. The patient has stopped talking and eating. The patient failed outpatient management, and she was deemed a danger to herself. Medicine was consulted for medical management of nonpsychiatric conditions. #Major depressive disorder Management per primary #Non-insulin dependent type II diabetes mellitus complicated by diabetic neuropathy #Aya-wbxoslq-hzcgqvzhl type 2 diabetes mellitus with hyperglycemia - hemoglobin A1c: 11.9 - home regimen: Metformin 1000 mg twice daily and pregabalin 100 mg twice daily - current regimen: Metformin 1000 mg twice daily, pregabalin 100 mg twice daily, glipizide 5 mg daily - blood glucose goal 140-180 while inpatient - continue to monitor #Hyperlipidemia Continue home atorvastatin 20 mg daily #Mild protein caloric malnutrition Albumin 3.8 Continue dietary supplementation #Obesity #Weight loss counseling #Exercise counseling - BMI 30.2 - Counseled patient on the importance of weight loss, incorporating exercise, and dietary changes (lean meats, fresh fruits and vegetables, and water intake). Patient expresses understanding. - Time: +15 min #Advanced care planning -Disease education conducted, care plan discussed, diagnoses discussed, prognosis discussed, and patient acknowledges understanding with care plan -Time: +30 min Disposition Plan: Continue medical management Total Time Spent with Patient (Minutes): 30 minutes History Interval history: No acute events overnight. Hospitalist Physical - Constitutional Vitals: Temp Pulse Resp BP Pulse Ox 98.3 F 67 18 121/54 96 12/13/21 08:51 12/13/21 08:51 12/13/21 09:17 12/13/21 08:51 12/13/21 08:51 General appearance: Present: no acute distress, well-nourished, obese - EENT Eyes: Present: PERRL, EOM intact ENT: hearing intact, clear oral mucosa, dentition normal - Neck Neck: Present: supple, normal ROM - Respiratory Respiratory effort: normal Respiratory: bilateral: CTA - Cardiovascular Rhythm: regular Heart Sounds: Present: S1 & S2 - Extremities Extremities: no ischemia, pulses intact, pulses symmetrical, No edema, normal temperature, normal color Peripheral Pulses: within normal limits - Abdominal General gastrointestinal: soft, non-tender, non-distended, normal bowel sounds - Integumentary Integumentary: Present: clear, warm, dry - Psychiatric Psychiatric: appropriate mood/affect, cooperative - Neurologic Neurologic: CNII-XII intact - Allied Health Allied health notes reviewed: nursing Results - Labs CBC & Chem 7: 12/11/21 07:06 12/11/21 07:06 Labs: Laboratory Last Values WBC 6.9 K/mm3 (4.5-11.0) 12/11/21 07:06 RBC 5.17 M/mm3 (3.65-5.03) H 12/11/21 07:06 Hgb 14.3 gm/dl (10.1-14.3) 12/11/21 07:06 Hct 42.3 % (30.3-42.9) 12/11/21 07:06 MCV 82 fl (79-97) 12/11/21 07:06 MCH 28 pg (28-32) 12/11/21 07:06 MCHC 34 % (30-34) 12/11/21 07:06 RDW 13.6 % (13.2-15.2) 12/11/21 07:06 Plt Count 179 K/mm3 (140-440) 12/11/21 07:06 Lymph % (Auto) 30.9 % (13.4-35.0) 12/11/21 07:06 [place] % (Auto) 6.1 % (0.0-7.3) 12/11/21 07:06 Eos % (Auto) 2.0 % (0.0-4.3) 12/11/21 07:06 Baso % (Auto) 0.9 % (0.0-1.8) 12/11/21 07:06 Lymph # (Auto) 2.1 K/mm3 (1.2-5.4) 12/11/21 07:06 [place] # (Auto) 0.4 K/mm3 (0.0-0.8) 12/11/21 07:06 Eos # (Auto) 0.1 K/mm3 (0.0-0.4) 12/11/21 07:06 Baso # (Auto) 0.1 K/mm3 (0.0-0.1) 12/11/21 07:06 Seg Neutrophils % 60.1 % (40.0-70.0) 12/11/21 07:06 Seg Neutrophils # 4.2 K/mm3 (1.8-7.7) 12/11/21 07:06 Sodium 137 mmol/L (137-145) 12/11/21 07:06 Potassium 4.3 mmol/L (3.6-5.0) 12/11/21 07:06 Chloride 98.9 mmol/L (98-107) 12/11/21 07:06 Carbon Dioxide 26 mmol/L (22-30) 12/11/21 07:06 Anion Gap 16 mmol/L 12/11/21 07:06 BUN 24 mg/dL (7-17) H 12/11/21 07:06 Creatinine 0.6 mg/dL (0.6-1.2) 12/11/21 07:06 Estimated GFR > 60 ml/min 12/11/21 07:06 BUN/Creatinine Ratio 40 % 12/11/21 07:06 Glucose 268 mg/dL (65-100) H 12/11/21 07:06 POC Glucose 273 mg/dL (70-105) H 12/13/21 06:22 Hemoglobin A1c 11.9 % (4-6) H 12/11/21 07:06 Calcium 9.8 mg/dL (8.4-10.2) 12/11/21 07:06 Total Bilirubin 0.40 mg/dL (0.1-1.2) 12/11/21 07:06 AST 11 units/L (5-40) 12/11/21 07:06 ALT 15 units/L (7-56) 12/11/21 07:06 Alkaline Phosphatase 74 units/L (35-129) 12/11/21 07:06 Total Protein 5.7 g/dL (6.3-8.2) L 12/11/21 07:06 Albumin 3.8 g/dL (3.9-5) L 12/11/21 07:06 Albumin/Globulin Ratio 2.0 % 12/11/21 07:06 Triglycerides 162 mg/dL (2-149) H 12/11/21 07:06 Cholesterol 189 mg/dL (50-199) 12/11/21 07:06 LDL Cholesterol Direct 114 mg/dL (50-130) 12/11/21 07:06 HDL Cholesterol 45 mg/dL (40-59) 12/11/21 07:06 Cholesterol/HDL Ratio 4.20 % 12/11/21 07:06 TSH 0.343 mlU/mL (0.270-4.200) 12/11/21 07:06 Hansen/IV: Voiding Method Toilet Active Medications - Current Medications Current Medications: Generic Name Dose Route Start Last Admin Trade Name Freq PRN Reason Stop Dose Admin Acetaminophen 650 mg 12/11/21 05:33 12/11/21 05:43 Acetaminophen 325 Mg Tab PO 650 mg Q6H PRN Administration Pain, Mild (1-3) Amoxicillin/Clavulanate Potassium 1 each 12/12/21 22:00 Amoxicillin/K Clav 500/125mg Tab PO 12/17/21 21:59 Q12HR [facility]AT Protocol Aripiprazole 5 mg 12/11/21 10:00 12/13/21 09:16 Aripiprazole 5 Mg Tab PO 5 mg QDAY [facility]AT Administration Atorvastatin Calcium 20 mg 12/11/21 22:00 12/12/21 21:33 Atorvastatin 20 Mg Tab PO 20 mg QHS [facility]AT Administration Duloxetine HCl 60 mg 12/14/21 10:00 Duloxetine 30 Mg Cap PO QDAY [facility] Duloxetine HCl 40 mg 12/13/21 22:00 Duloxetine 20 Mg Cap PO 12/13/21 22:01 ONCE ONE Glipizide 10 mg 12/13/21 08:19 Glipizide 5 Mg Tab PO QDDIAB [facility] Haloperidol Lactate 5 mg 12/11/21 10:31 12/11/21 11:08 Haloperidol Lactate 5 Mg/1 Ml Inj IM 5 mg Q6H PRN Administration Agitation Lamotrigine 25 mg 12/11/21 10:00 12/13/21 09:16 Lamotrigine 25 Mg Tab PO 25 mg BID RAFAT Administration Metformin HCl 1,000 mg 12/11/21 11:00 12/13/21 08:15 Metformin 500 Mg Tab PO 1,000 mg BIDDIAB [facility]AT Administration Mirtazapine 7.5 mg 12/12/21 22:00 12/12/21 21:33 Mirtazapine 15 Mg Tab PO 7.5 mg QHS RAFAT Administration Oxycodone HCl 15 mg 12/11/21 09:57 Oxycodone 15 Mg Tab PO Q6H PRN SEVERE PAIN Oxycodone HCl 5 mg 12/11/21 09:58 12/13/21 09:17 Oxycodone 5 Mg Tab PO 5 mg Q6H PRN Administration Pain, SEVERE 7-10 Pregabalin 100 mg 12/11/21 10:00 12/13/21 09:16 Pregabalin 50 Mg Cap PO 100 mg BID RAFAT Administration
[2021-12-13] MEDS: MIRTAZAPINE 15 MG TAB PO SCH (21:08)
[2021-12-13] MEDS ORDERED: DULoxetine 20 MG CAP PO ONE (22:00)
[2021-12-13 23:39] VITALS: BP 127/57
[2021-12-14] MEDS: oxyCODONE 5 MG TAB PO PRN ×2 (06:31→13:45)
[2021-12-14] MEDS: metFORMIN 500 MG TAB PO SCH ×2 (08:17→17:24)
[2021-12-14] MEDS: glipiZIDE 5 MG TAB PO SCH (08:18)
[2021-12-14] MEDS: DULoxetine 30 MG CAP PO SCH (09:03)
[2021-12-14] MEDS: PREGABALIN 50 MG CAP PO SCH ×2 (09:03→21:48)
[2021-12-14] MEDS: ARIPiprazole 5 MG TAB PO SCH (09:04)
[2021-12-14] MEDS: lamoTRIgine 25 MG TAB PO SCH ×2 (09:04→21:48)
--- NOTE | 2021-12-14 09:32 | Progress Note ---
Subjective Date of service: 12/14/21 Principal diagnosis: MDD Subjective Comment: The patient was seen today. She verbalizes feeling better and sleeping well. The patient says "actually I'm doing well." She denies SI/HI or hallucinations of any kind. Attempted to call the patient's spouse. Did not get an answer. Left voice message. 12/13 The patient was seen today. She is lying in bed awake. She says she says she doesn't feel good. She says her stomach hurts. The patient denies SI/HI, but states "if I did no one would care. She says "my runs off with other women and I haven't spoken to my children in years." 12/12 The patient was seen today. She is calm and cooperative and states she feels much better. She is asking how long she will be here. She denies SI/HI or hallucinations of any kind. The patient states she did not sleep well. Staff says the patient is doing better since Haldol injection ordered yesterday. Will start Remeron to improve sleep and stimulate appetite. REVIEW OF SYSTEMS Constitutional: Negative for weight loss ENT: Negative for stridor Respiratory: Negative for cough or hemoptysis All other systems reviewed and are negative MENTAL STATUS EXAMINATION General Appearance and Behavior: Age appropriate, good hygiene, wearing appropriate clothes, good eye contact, calm, cooperative Cooperation: Participating/engaged Psychomotor Behavior: Psychomotor normal Mood: better, well Affect and affective range: congruent with stated mood, tearful Thought Process: goal directed Thought Content: None Speech: normal tone and pace Suicidal Ideation: passive Homicidal Ideation: Denies Hallucinations: Denies Delusions: None elicited Impulse Control: Limited Insight and Judgment: Limited insight and judgment Memory: Limited Attention: attentive Orientation: Alert, oriented Diagnoses: Major Depressive Disorder Treatment Plan Patient admitted for inpatient psychiatric evaluation, medication adjustment and close monitoring The patient's behavior, mood, sleep and appetite will be closely monitored. Patient enrolled in individual and group therapeutic sessions and encouraged to attend. Patient provided with a safe and structured environment. Patient's physical health needs will be addressed by the Hospitalist. Hospitalist Consulted Labs including CBC, CMP, Lipid profile and Hemoglobin A1C levels ordered for baseline reference Social Assessment will be completed and the Lasting Room Machine Operator will work with patient and family to ensure a suitable and safe disposition Medication adjustment will be made as clinically indicated Abilify 5mg po daily as adjunct Continue Remeron 7.5mg po qhs to promote rest and stimulate appetite Continue Cymbalta 60mg po daily Usual Wellness Yarsanism/Preservation: - Start Trazodone 50 mg po QHS & 50 mg po QHS PRN between 10 PM & 2 AM for insomnia - Start Melatonin 5 mg po QHS to promote circadian rhythm The patient agreed on the treatment plan, understood the risk, benefit, alternative treatment, potential consequence of no treatment, and gave informed consent. Estimated days: 7 Post hospital care: primary care provider, psychiatric provider Case staffed with Dr. King Medications and Allergies Allergies Allergy/AdvReac Type Severity Reaction Status Date / Time Penicillins Allergy Severe Rash Verified 12/12/21 13:33 Home Medications Medication Instructions Recorded Confirmed Last Taken Type AtorvaSTATin [Lipitor] 20 mg PO QHS 12/11/21 12/11/21 Unknown History Cefdinir 300 mg PO Q12H 12/11/21 12/11/21 Unknown History Duloxetine HCl [Cymbalta] 20 mg PO BID 12/11/21 12/11/21 Unknown History Metformin HCl [metFORMIN] 1,000 mg PO BID 12/11/21 12/11/21 Unknown History Oxycodone HCl [oxyCODONE] 20 mg PO Q6H PRN 12/11/21 12/11/21 Unknown History Pregabalin [Lyrica] 100 mg PO BID 12/11/21 12/11/21 Unknown History lamoTRIgine [LaMICtal] 25 mg PO BID 12/11/21 12/11/21 Unknown History Active Meds: Active Medications Acetaminophen (Acetaminophen 325 Mg Tab) 650 mg PO Q6H PRN PRN Reason: Pain, Mild (1-3) Last Admin: 12/11/21 05:43 Dose: 650 mg Amoxicillin/Clavulanate Potassium (Amoxicillin/K Clav 500/125mg Tab) 1 each PO Q12HR [facility]; Protocol Stop: 12/17/21 21:59 Aripiprazole (Aripiprazole 5 Mg Tab) 5 mg PO QDAY [facility] Last Admin: 12/14/21 09:04 Dose: 5 mg Atorvastatin Calcium (Atorvastatin 20 Mg Tab) 20 mg PO QHS [facility] Last Admin: 12/13/21 21:07 Dose: 20 mg Duloxetine HCl (Duloxetine 30 Mg Cap) 60 mg PO QDAY [facility] Last Admin: 12/14/21 09:03 Dose: 60 mg Glipizide (Glipizide 5 Mg Tab) 10 mg PO QDDIAB [facility] Last Admin: 12/14/21 08:18 Dose: 10 mg Haloperidol Lactate (Haloperidol Lactate 5 Mg/1 Ml Inj) 5 mg IM Q6H PRN PRN Reason: Agitation Last Admin: 12/11/21 11:08 Dose: 5 mg Lamotrigine (Lamotrigine 25 Mg Tab) 25 mg PO BID [facility] Last Admin: 12/14/21 09:04 Dose: 25 mg Metformin HCl (Metformin 500 Mg Tab) 1,000 mg PO BIDDIAB [facility] Last Admin: 12/14/21 08:17 Dose: 1,000 mg Mirtazapine (Mirtazapine 15 Mg Tab) 7.5 mg PO QHS [facility] Last Admin: 12/13/21 21:08 Dose: 7.5 mg Oxycodone HCl (Oxycodone 15 Mg Tab) 15 mg PO Q6H PRN PRN Reason: SEVERE PAIN Oxycodone HCl (Oxycodone 5 Mg Tab) 5 mg PO Q6H PRN PRN Reason: Pain, SEVERE 7-10 Last Admin: 12/14/21 06:31 Dose: 5 mg Pregabalin (Pregabalin 50 Mg Cap) 100 mg PO BID [facility] Last Admin: 12/14/21 09:03 Dose: 100 mg Results - Results Labs/Vitals: Laboratory Last Values WBC 6.9 K/mm3 (4.5-11.0) 12/11/21 07:06 RBC 5.17 M/mm3 (3.65-5.03) H 12/11/21 07:06 Hgb 14.3 gm/dl (10.1-14.3) 12/11/21 07:06 Hct 42.3 % (30.3-42.9) 12/11/21 07:06 MCV 82 fl (79-97) 12/11/21 07:06 MCH 28 pg (28-32) 12/11/21 07:06 MCHC 34 % (30-34) 12/11/21 07:06 RDW 13.6 % (13.2-15.2) 12/11/21 07:06 Plt Count 179 K/mm3 (140-440) 12/11/21 07:06 Lymph % (Auto) 30.9 % (13.4-35.0) 12/11/21 07:06 [place] % (Auto) 6.1 % (0.0-7.3) 12/11/21 07:06 Eos % (Auto) 2.0 % (0.0-4.3) 12/11/21 07:06 Baso % (Auto) 0.9 % (0.0-1.8) 12/11/21 07:06 Lymph # (Auto) 2.1 K/mm3 (1.2-5.4) 12/11/21 07:06 [place] # (Auto) 0.4 K/mm3 (0.0-0.8) 12/11/21 07:06 Eos # (Auto) 0.1 K/mm3 (0.0-0.4) 12/11/21 07:06 Baso # (Auto) 0.1 K/mm3 (0.0-0.1) 12/11/21 07:06 Seg Neutrophils % 60.1 % (40.0-70.0) 12/11/21 07:06 Seg Neutrophils # 4.2 K/mm3 (1.8-7.7) 12/11/21 07:06 Sodium 137 mmol/L (137-145) 12/11/21 07:06 Potassium 4.3 mmol/L (3.6-5.0) 12/11/21 07:06 Chloride 98.9 mmol/L (98-107) 12/11/21 07:06 Carbon Dioxide 26 mmol/L (22-30) 12/11/21 07:06 Anion Gap 16 mmol/L 12/11/21 07:06 BUN 24 mg/dL (7-17) H 12/11/21 07:06 Creatinine 0.6 mg/dL (0.6-1.2) 12/11/21 07:06 Estimated GFR > 60 ml/min 12/11/21 07:06 BUN/Creatinine Ratio 40 % 12/11/21 07:06 Glucose 268 mg/dL (65-100) H 12/11/21 07:06 POC Glucose 128 mg/dL (70-105) H 12/13/21 19:47 Hemoglobin A1c 11.9 % (4-6) H 12/11/21 07:06 Calcium 9.8 mg/dL (8.4-10.2) 12/11/21 07:06 Total Bilirubin 0.40 mg/dL (0.1-1.2) 12/11/21 07:06 AST 11 units/L (5-40) 12/11/21 07:06 ALT 15 units/L (7-56) 12/11/21 07:06 Alkaline Phosphatase 74 units/L (35-129) 12/11/21 07:06 Total Protein 5.7 g/dL (6.3-8.2) L 12/11/21 07:06 Albumin 3.8 g/dL (3.9-5) L 12/11/21 07:06 Albumin/Globulin Ratio 2.0 % 12/11/21 07:06 Triglycerides 162 mg/dL (2-149) H 12/11/21 07:06 Cholesterol 189 mg/dL (50-199) 12/11/21 07:06 LDL Cholesterol Direct 114 mg/dL (50-130) 12/11/21 07:06 HDL Cholesterol 45 mg/dL (40-59) 12/11/21 07:06 Cholesterol/HDL Ratio 4.20 % 12/11/21 07:06 TSH 0.343 mlU/mL (0.270-4.200) 12/11/21 07:06 Last Vital Signs Temp 99.1 F 12/13/21 22:00 Pulse 66 12/13/21 22:00 Resp 16 12/13/21 22:00 BP 127/57 12/13/21 22:00 Pulse Ox 97 12/13/21 22:00
--- NOTE | 2021-12-14 17:32 | Progress Note ---
Assessment and Plan - Patient Problems (1) Vascular dementia with behavioral disturbance Current Visit: Yes Status: Acute (2) Cerebral atherosclerosis Current Visit: Yes Status: Acute (3) Diabetes Current Visit: Yes Status: Acute (4) Obesity Current Visit: Yes Status: Acute Qualifiers: Body mass index: BMI 30.0-30.9 (5) Major depression Current Visit: Yes Status: Acute (6) Advance care planning Current Visit: Yes Status: Acute History Interval history: 66 YO Female with Vascular Dementia with Behavioral Disturbance, Cerebral Atherosclerosis, DM complicated by Neuropathy, HLD, Obesity, MDD, admitted to [facility] for psychiatric stabilization. Consult placed by Dr. Lozoya for medical management. Patient seen and evaluated in the recreation room. Patient resting comfortably. Patient remains at baseline level of cognition and function. No reported nursing events. Hospitalist Physical - Constitutional Vitals: Temp Pulse Resp BP Pulse Ox 99.1 F 66 16 127/57 97 12/13/21 22:00 12/13/21 22:00 12/13/21 22:00 12/13/21 22:00 12/13/21 22:00 General appearance: Present: no acute distress, well-nourished, obese - EENT ENT: hearing intact - Neck Neck: Present: supple - Respiratory Respiratory effort: normal Respiratory: bilateral: CTA - Cardiovascular Rhythm: regular Heart Sounds: Present: S1 & S2 - Extremities Extremities: no ischemia Peripheral Pulses: within normal limits - Abdominal General gastrointestinal: soft, non-tender, non-distended - Integumentary Integumentary: Present: clear, dry - Psychiatric Psychiatric: cooperative - Neurologic Neurologic: CNII-XII intact Results - Labs CBC & Chem 7: 12/11/21 07:06 12/11/21 07:06 Labs: Laboratory Last Values WBC 6.9 K/mm3 (4.5-11.0) 12/11/21 07:06 RBC 5.17 M/mm3 (3.65-5.03) H 12/11/21 07:06 Hgb 14.3 gm/dl (10.1-14.3) 12/11/21 07:06 Hct 42.3 % (30.3-42.9) 12/11/21 07:06 MCV 82 fl (79-97) 12/11/21 07:06 MCH 28 pg (28-32) 12/11/21 07:06 MCHC 34 % (30-34) 12/11/21 07:06 RDW 13.6 % (13.2-15.2) 12/11/21 07:06 Plt Count 179 K/mm3 (140-440) 12/11/21 07:06 Lymph % (Auto) 30.9 % (13.4-35.0) 12/11/21 07:06 [place] % (Auto) 6.1 % (0.0-7.3) 12/11/21 07:06 Eos % (Auto) 2.0 % (0.0-4.3) 12/11/21 07:06 Baso % (Auto) 0.9 % (0.0-1.8) 12/11/21 07:06 Lymph # (Auto) 2.1 K/mm3 (1.2-5.4) 12/11/21 07:06 [place] # (Auto) 0.4 K/mm3 (0.0-0.8) 12/11/21 07:06 Eos # (Auto) 0.1 K/mm3 (0.0-0.4) 12/11/21 07:06 Baso # (Auto) 0.1 K/mm3 (0.0-0.1) 12/11/21 07:06 Seg Neutrophils % 60.1 % (40.0-70.0) 12/11/21 07:06 Seg Neutrophils # 4.2 K/mm3 (1.8-7.7) 12/11/21 07:06 Sodium 137 mmol/L (137-145) 12/11/21 07:06 Potassium 4.3 mmol/L (3.6-5.0) 12/11/21 07:06 Chloride 98.9 mmol/L (98-107) 12/11/21 07:06 Carbon Dioxide 26 mmol/L (22-30) 12/11/21 07:06 Anion Gap 16 mmol/L 12/11/21 07:06 BUN 24 mg/dL (7-17) H 12/11/21 07:06 Creatinine 0.6 mg/dL (0.6-1.2) 12/11/21 07:06 Estimated GFR > 60 ml/min 12/11/21 07:06 BUN/Creatinine Ratio 40 % 12/11/21 07:06 Glucose 268 mg/dL (65-100) H 12/11/21 07:06 POC Glucose 251 mg/dL (70-105) H 12/14/21 06:36 Hemoglobin A1c 11.9 % (4-6) H 12/11/21 07:06 Calcium 9.8 mg/dL (8.4-10.2) 12/11/21 07:06 Total Bilirubin 0.40 mg/dL (0.1-1.2) 12/11/21 07:06 AST 11 units/L (5-40) 12/11/21 07:06 ALT 15 units/L (7-56) 12/11/21 07:06 Alkaline Phosphatase 74 units/L (35-129) 12/11/21 07:06 Total Protein 5.7 g/dL (6.3-8.2) L 12/11/21 07:06 Albumin 3.8 g/dL (3.9-5) L 12/11/21 07:06 Albumin/Globulin Ratio 2.0 % 12/11/21 07:06 Triglycerides 162 mg/dL (2-149) H 12/11/21 07:06 Cholesterol 189 mg/dL (50-199) 12/11/21 07:06 LDL Cholesterol Direct 114 mg/dL (50-130) 12/11/21 07:06 HDL Cholesterol 45 mg/dL (40-59) 12/11/21 07:06 Cholesterol/HDL Ratio 4.20 % 12/11/21 07:06 TSH 0.343 mlU/mL (0.270-4.200) 12/11/21 07:06 Hansen/IV: Voiding Method Toilet Active Medications - Current Medications Current Medications: Generic Name Dose Route Start Last Admin Trade Name Freq PRN Reason Stop Dose Admin Acetaminophen 650 mg 12/11/21 05:33 12/11/21 05:43 Acetaminophen 325 Mg Tab PO 650 mg Q6H PRN Administration Pain, Mild (1-3) Aripiprazole 5 mg 12/11/21 10:00 12/14/21 09:04 Aripiprazole 5 Mg Tab PO 5 mg QDAY RAFAT Administration Atorvastatin Calcium 20 mg 12/11/21 22:00 12/13/21 21:07 Atorvastatin 20 Mg Tab PO 20 mg QHS RAFAT Administration Duloxetine HCl 60 mg 12/14/21 10:00 12/14/21 09:03 Duloxetine 30 Mg Cap PO 60 mg QDAY RAFAT Administration Glipizide 10 mg 12/13/21 08:19 12/14/21 08:18 Glipizide 5 Mg Tab PO 10 mg QDDIAB RAFAT Administration Haloperidol Lactate 5 mg 12/11/21 10:31 12/11/21 11:08 Haloperidol Lactate 5 Mg/1 Ml Inj IM 5 mg Q6H PRN Administration Agitation Lamotrigine 25 mg 12/11/21 10:00 12/14/21 09:04 Lamotrigine 25 Mg Tab PO 25 mg BID RAFAT Administration Metformin HCl 1,000 mg 12/11/21 11:00 12/14/21 17:24 Metformin 500 Mg Tab PO 1,000 mg BIDDIAB RAFAT Administration Mirtazapine 7.5 mg 12/12/21 22:00 12/13/21 21:08 Mirtazapine 15 Mg Tab PO 7.5 mg QHS RAFAT Administration Oxycodone HCl 15 mg 12/11/21 09:57 Oxycodone 15 Mg Tab PO Q6H PRN SEVERE PAIN Oxycodone HCl 5 mg 12/11/21 09:58 12/14/21 13:45 Oxycodone 5 Mg Tab PO 5 mg Q6H PRN Administration Pain, SEVERE 7-10 Pregabalin 100 mg 12/11/21 10:00 12/14/21 09:03 Pregabalin 50 Mg Cap PO 100 mg BID RAFAT Administration
[2021-12-14] MEDS: MIRTAZAPINE 15 MG TAB PO SCH (21:48)
[2021-12-15] MEDS: oxyCODONE 5 MG TAB PO PRN ×2 (02:58→14:38)
[2021-12-15] MEDS: lamoTRIgine 25 MG TAB PO SCH (09:24)
[2021-12-15] MEDS: PREGABALIN 50 MG CAP PO SCH (09:25)
[2021-12-15] MEDS: ARIPiprazole 5 MG TAB PO SCH (09:25)
[2021-12-15] MEDS: DULoxetine 30 MG CAP PO SCH (09:25)
[2021-12-15] MEDS: metFORMIN 500 MG TAB PO SCH ×2 (09:26→16:33)
[2021-12-15] MEDS: glipiZIDE 5 MG TAB PO SCH (09:26)
--- NOTE | 2021-12-15 10:09 | Discharge Summary ---
Providers - Providers Date of Admission: 12/10/21 16:22 Date of discharge: 12/15/21 Attending physician: RITA FARRAR MD 12/10/21 16:22 Consult to Physician [CONS] Routine Comment: Consulting Provider: FATEMEH LEI Physician Instructions: Reason For Exam: manage medical conditions Primary care physician: INFORMATICS EDUCATOR Hospitalization Reason for admission: depression Admitting Diagnosis: F33.9 - MAJOR DEPRESSIVE DISORDER, RECURRENT, UNSPECIFIED Condition: Stable Hospital course: The patient was provided inpatient psychiatric treatment with safe and supportive environment, group/individual therapy, psychiatric medication, medication adjustment, adverse effect monitor, medical evaluation, medical treatment, social service assessment, social support meeting, placement assessment and psycho-education. The patients mood, cognition, behavior, motivation, compliance to treatment and appreciation on family/social support are improved and stabilized. At the time of discharge, the patient had no suicidal ideas, no homicidal ideas, no aggressive thoughts, no endangering be havior and no debilitating adverse effects. The patient agreed on the treatment plan, understood the risk, benefit, alternative treatment, potential consequence of no treatment, and gave informed consent. Disposition: 01 HOME / SELF CARE / HOMELESS Time spent for discharge: 35 Allergies/Adverse Reactions: Allergies Penicillins Allergy (Severe, Verified 12/12/21 13:33) Rash pt. said when she was a kid and since then, she has not had the med Vital Signs: Last Vital Signs Temp 99.1 F 12/13/21 22:00 Pulse 66 12/13/21 22:00 Resp 16 12/13/21 22:00 BP 127/57 12/13/21 22:00 Pulse Ox 97 12/13/21 22:00 Last Lab: Laboratory Last Values WBC 6.9 K/mm3 (4.5-11.0) 12/11/21 07:06 RBC 5.17 M/mm3 (3.65-5.03) H 12/11/21 07:06 Hgb 14.3 gm/dl (10.1-14.3) 12/11/21 07:06 Hct 42.3 % (30.3-42.9) 12/11/21 07:06 MCV 82 fl (79-97) 12/11/21 07:06 MCH 28 pg (28-32) 12/11/21 07:06 MCHC 34 % (30-34) 12/11/21 07:06 RDW 13.6 % (13.2-15.2) 12/11/21 07:06 Plt Count 179 K/mm3 (140-440) 12/11/21 07:06 Lymph % (Auto) 30.9 % (13.4-35.0) 12/11/21 07:06 [place] % (Auto) 6.1 % (0.0-7.3) 12/11/21 07:06 Eos % (Auto) 2.0 % (0.0-4.3) 12/11/21 07:06 Baso % (Auto) 0.9 % (0.0-1.8) 12/11/21 07:06 Lymph # (Auto) 2.1 K/mm3 (1.2-5.4) 12/11/21 07:06 [place] # (Auto) 0.4 K/mm3 (0.0-0.8) 12/11/21 07:06 Eos # (Auto) 0.1 K/mm3 (0.0-0.4) 12/11/21 07:06 Baso # (Auto) 0.1 K/mm3 (0.0-0.1) 12/11/21 07:06 Seg Neutrophils % 60.1 % (40.0-70.0) 12/11/21 07:06 Seg Neutrophils # 4.2 K/mm3 (1.8-7.7) 12/11/21 07:06 Sodium 137 mmol/L (137-145) 12/11/21 07:06 Potassium 4.3 mmol/L (3.6-5.0) 12/11/21 07:06 Chloride 98.9 mmol/L (98-107) 12/11/21 07:06 Carbon Dioxide 26 mmol/L (22-30) 12/11/21 07:06 Anion Gap 16 mmol/L 12/11/21 07:06 BUN 24 mg/dL (7-17) H 12/11/21 07:06 Creatinine 0.6 mg/dL (0.6-1.2) 12/11/21 07:06 Estimated GFR > 60 ml/min 12/11/21 07:06 BUN/Creatinine Ratio 40 % 12/11/21 07:06 Glucose 268 mg/dL (65-100) H 12/11/21 07:06 POC Glucose 110 mg/dL (70-105) H 12/14/21 19:56 Hemoglobin A1c 11.9 % (4-6) H 12/11/21 07:06 Calcium 9.8 mg/dL (8.4-10.2) 12/11/21 07:06 Total Bilirubin 0.40 mg/dL (0.1-1.2) 12/11/21 07:06 AST 11 units/L (5-40) 12/11/21 07:06 ALT 15 units/L (7-56) 12/11/21 07:06 Alkaline Phosphatase 74 units/L (35-129) 12/11/21 07:06 Total Protein 5.7 g/dL (6.3-8.2) L 12/11/21 07:06 Albumin 3.8 g/dL (3.9-5) L 12/11/21 07:06 Albumin/Globulin Ratio 2.0 % 12/11/21 07:06 Triglycerides 162 mg/dL (2-149) H 12/11/21 07:06 Cholesterol 189 mg/dL (50-199) 12/11/21 07:06 LDL Cholesterol Direct 114 mg/dL (50-130) 12/11/21 07:06 HDL Cholesterol 45 mg/dL (40-59) 12/11/21 07:06 Cholesterol/HDL Ratio 4.20 % 12/11/21 07:06 TSH 0.343 mlU/mL (0.270-4.200) 12/11/21 07:06 Core Measure Documentation - Palliative Care Palliative Care/ Comfort Measures: Not Applicable - Core Measures Any of the following diagnoses?: none Exam - Constitutional Vitals: Temp Pulse Resp BP Pulse Ox 99.1 F 66 16 127/57 97 12/13/21 22:00 12/13/21 22:00 12/13/21 22:00 12/13/21 22:00 12/13/21 22:00 General appearance: Present: no acute distress - EENT Eyes: Present: PERRL, EOM intact ENT: hearing intact, clear oral mucosa - Neck Neck: Present: supple, normal ROM Plan Activity: advance as tolerated Weight Bearing Status: Weight Bear as Tolerated Care Plan Goals: Maintain good and stable mental health Plan of Treatment: The patient should be compliant with medications, not to use drugs and not to drink alcohol.The patient understands that if suicidal ideas, homicidal ideas, or any endangering thoughts/behavior arise, they should immediately seek for emergent assistance including but not limited to crisis hot line and emergency room. Follow up with outpatient Psychiatrist and PCP within 7 - 14 days of discharge. Assessment: Major Depressive Disorder Follow up with: PRIMARY CARE, [Primary Care Provider] - 7 Days Prescriptions: Mirtazapine [Remeron 15mg TAB] 7.5 mg PO QHS #15 tablet ARIPiprazole 5 mg PO QDAY #30 tablet DULoxetine [Cymbalta] 60 mg PO QDAY #90 capsule
== END 2021-12-15 17:50 | disposition home or self-care (01) | DRG 885 ==
LOC: 3A 13:23 → UNDOADMIN 13:23 → 5A 16:22
PROVIDERS: ADMIT Psychiatry & Neurology Psychiatry; ATTEND Psychiatry & Neurology Psychiatry
DX: F33.9 Major depressive disorder, recurrent, unspecified (principal); E44.1 Mild protein-calorie malnutrition; F01.51 Vascular dementia, unspecified severity, with behavioral disturbance; E66.9 Obesity, unspecified; I10 Essential (primary) hypertension; E78.5 Hyperlipidemia, unspecified; E11.40 Type 2 diabetes mellitus with diabetic neuropathy, unspecified; E11.65 Type 2 diabetes mellitus with hyperglycemia; Z68.30 Body mass index [BMI] 30.0-30.9, adult; Z88.0 Allergy status to penicillin; Z71.3 Dietary counseling and surveillance
CPT/HCPCS: 36415; 80053; 80061; 82962; 83036; 84443; 85025; G0378; J1630